=== PATIENT | male | born 1990 | race Caucasian/White ===

== ENCOUNTER 2018-09-28 15:32 | Emergency (ER) | payer OTHER ==
[~2018-09-28] VITALS: Ht 165.1 cm; Wt 65.9 kg
[2018-09-28] MEDS ORDERED: NAPROXEN500 MG PO (16:47)
[2018-09-28 16:59] VITALS: BP 118/76
== END 2018-09-28 17:02 | disposition home or self-care (01) | DRG 605 ==
LOC: ED 15:32
PROC: 0HQ1XZZ Repair Face Skin, External Approach (ICD-10-PCS; principal; 2018-09-28)
DX: S01.81XA Laceration without foreign body of other part of head, initial encounter (principal); S50.311A Abrasion of right elbow, initial encounter; Y35.813A Legal intervention involving manhandling, suspect injured, initial encounter; Y92.149 Unspecified place in prison as the place of occurrence of the external cause